=== PATIENT | female | born 1950 | race Caucasian/White ===

== ENCOUNTER → 2018-12-06 | Outpatient (CLI) | payer MEDICARE, OTHER ==
[~2018-12-06] MED LIST: ASPIRIN81 M1 PO; ATIVAN; ATIVAN1 MG PO; ATORVASTATIN CA20 M1 PO; ATOXIMETIN-B1 CAP PO; BIOTIN1000 MC1 PO; CAL-CITRATE PLU1 TAB PO; CALCIUM 600 +1 EA10 PO; CLOBETASOL EMOL15 GM T; E GEMS PO; FISH OIL 10001000 MG PO; GREEN TEA150 MG PO; KEFLEX500 M1 PO; LEVOTHROID0.125 MG; LEVOTHYROXINE50 MCG PO; LEXAPRO10 MG PO; MULTIVITAMINS1 EAC5 PO; OMEPRAZOLE20 M2 PO; PRILOSEC40 MG PO; PRINIVIL10 MG PO; PROBIOTIC1 EACH PO; SIMVASTATIN10 MG PO; SIMVASTATIN40 MG; TYLENOL PM EX-1 EACH PO; VITAMIN C500 MG PO
== END | disposition home or self-care (01) ==
LOC: US 12-03 10:00
DX: I65.23 Occlusion and stenosis of bilateral carotid arteries (principal); I10 Essential (primary) hypertension; R07.89 Other chest pain; Z72.0 Tobacco use

== ENCOUNTER → 2024-08-27 | Outpatient (CLI) | payer MEDICARE, OTHER | END | disposition home or self-care (01) | LOC: RAD 17:23 | PROVIDERS: ATTEND Nurse Practitioner | DX: R22.0 Localized swelling, mass and lump, head (principal); R68.84 Jaw pain ==

== ENCOUNTER → 2024-09-16 | Outpatient (CLI) | payer MEDICARE, OTHER ==
[~2024-09-16] MED LIST changes: +IOHEXOL 300 MG/ML 100 ML VIAL IV ONE
== END | disposition home or self-care (01) ==
LOC: CT 09-02 14:00
PROVIDERS: ATTEND Nurse Practitioner
DX: R22.0 Localized swelling, mass and lump, head (principal)

== ENCOUNTER → 2024-09-24 | Outpatient (CLI) | payer MEDICARE, OTHER ==
[~2024-09-24] MED LIST changes: -IOHEXOL 300 MG/ML 100 ML VIAL IV ONE
== END | disposition home or self-care (01) ==
LOC: MRI 01:16
PROVIDERS: ATTEND Orthopaedic Surgery
DX: M51.370 Other intervertebral disc degeneration, lumbosacral region with discogenic back pain only (principal); M51.369 Other intervertebral disc degeneration, lumbar region without mention of lumbar back pain or lower extremity pain; M48.07 Spinal stenosis, lumbosacral region